=== PATIENT | male | born 1995 | race Caucasian/White ===

== ENCOUNTER 2019-12-24 18:46 | Emergency (ER) | payer OTHER ==
[2019-12-24 19:25] VITALS: BP 143/87; PULSE 87; TEMP 98.4; BMI 27.7
--- NOTE | 2019-12-24 19:25 | PDOC ---
Rapid Medical Evaluation Chief Complaint: Sore Throat Time Seen by Provider: 12/24/19 19:22 Medical Evaluation: 12/24/19 19:22 I have performed a brief in-person evaluation of this patient. The patient presents with a chief complaint of:sore throat w/ b/l ear pain x 4 days, no f/c Pertinent physical exam findings:well pierre and stable I have ordered the following:nothing The patient will proceed to the ED for further evaluation. Discharge Disposition - Diagnosis URI (upper respiratory infection) Qualifiers: URI type: unspecified viral URI Qualified Code(s): J06.9 - Acute upper respiratory infection, unspecified - Referrals - Patient Instructions - Post Discharge Activity
--- NOTE | 2019-12-24 20:05 | PDOC ---
History of Present Illness - General Chief Complaint: Sore Throat Stated Complaint: SORE THROAT Time Seen by Provider: 12/24/19 19:22 - History of Present Illness Initial Comments: 12/24/19 20:05 24-year-old male without comorbidities presents with sore throat and fever x3 days Past History - Past Medical History Allergies/Adverse Reactions: Allergies Allergy/AdvReac Type Severity Reaction Status Date / Time No Known Allergies Allergy Verified 12/24/19 19:25 COPD: No - Psycho Social/Smoking Cessation Hx Smoking History: Never smoked Review of Systems - Review of Systems Constitutional: Yes: Fever HEENTM: Yes: Throat Pain *Physical Exam - Vital Signs Last Vital Signs Temp Pulse Resp BP Pulse Ox 98.4 F 87 18 143/87 99 12/24/19 19:22 12/24/19 19:22 12/24/19 19:22 12/24/19 19:22 12/24/19 19:22 - Physical Exam 12/24/19 20:05 GENERAL: The patient is awake, alert, and fully oriented, in no acute distress. HEAD: Normal with no signs of trauma. EYES: sclera anicteric, conjunctiva clear. ENT: Ears normal tympanic membranes normal oropharynx clear uvula midline NECK: Normal range of motion LUNGS: Breath sounds equal, clear to auscultation bilaterally. No wheezes, and no crackles. HEART: S1 and S2 without murmur, rub or gallop. ABDOMEN: Soft, nontender, normoactive bowel sounds. No guarding, no rebound. No masses. EXTREMITIES: Normal range of motion, no edema. No clubbing or cyanosis. No cords, erythema, or tenderness. NEUROLOGICAL: Cranial nerves II through XII grossly intact. PSYCH: Normal mood, normal affect. SKIN: Warm, Dry, normal turgor, no rashes or lesions noted. Medical Decision Making - Medical Decision Making 12/24/19 20:56 Supportive care for viral pharyngitis follow-up with primary care physician culture sent Discharge - Discharge Information Problems reviewed: Yes Clinical Impression/Diagnosis: Viral pharyngitis URI (upper respiratory infection) Qualifiers: URI type: unspecified viral URI Qualified Code(s): J06.9 - Acute upper respiratory infection, unspecified Condition: Stable Disposition: HOME - Admission No - Follow up/Referral Referrals: Fer Mcbride MD [Staff Physician] - - Patient Discharge Instructions Additional Instructions: Your strep test today was negative, no antibiotics are needed. Warm salt water gargles 5-6 times a day will help with your pain. Tylenol and Motrin for any discomfort. A culture was sent should you require antibiotics we will call you. Please follow-up with your primary care physician in 2 to 3 days without fail and return to the emergency room should symptoms worsen. - Post Discharge Activity
== END 2019-12-24 21:35 | disposition home or self-care (01) ==
LOC: JERFT 18:46
DX: J06.9 Acute upper respiratory infection, unspecified (principal); J02.9 Acute pharyngitis, unspecified; B97.89 Other viral agents as the cause of diseases classified elsewhere
CPT/HCPCS: 87070; 87880; 99281-25